=== PATIENT | male | born 1980 | race Caucasian/White ===

== ENCOUNTER 2019-08-20 08:39 | Emergency (ER) | payer OTHER ==
[~2019-08-20] VITALS: Ht 172.7 cm; Wt 116.0 kg
[2019-08-20 08:43] VITALS: BP 117/86
[2019-08-20] MEDS ORDERED: LIDOCAINE-MPF 1%, 5ML ONE (09:09)
[2019-08-20] MEDS ORDERED: LIDOCAINE-MPF 1%, 5ML INFIL ONE (09:30)
== END 2019-08-20 09:56 | disposition home or self-care (01) ==
LOC: ED 09:08
DX: S61.211A Laceration without foreign body of left index finger without damage to nail, initial encounter (principal); J45.909 Unspecified asthma, uncomplicated; X58.XXXA Exposure to other specified factors, initial encounter; Y93.89 Activity, other specified; Y92.009 Unspecified place in unspecified non-institutional (private) residence as the place of occurrence of the external cause; Y99.8 Other external cause status
CPT/HCPCS: 12001; 99283